=== PATIENT | male | born 1955 | race Caucasian/White ===

== ENCOUNTER → 2020-03-10 14:24 | Outpatient (BNVA) | payer MEDICARE, SELFPAY | PROVIDERS: PCP Student in an Organized Health Care Education/Training Program; Visit Provider Urology | DX: R97.20 Elevated prostate specific antigen [PSA] (principal); C67.8 Malignant neoplasm of overlapping sites of bladder; C61 Malignant neoplasm of prostate; N52.35 Erectile dysfunction following radiation therapy | CPT/HCPCS: 81003; 84153 ==

== ENCOUNTER → 2021-03-09 13:10 | Outpatient (BNVA) | payer MEDICARE, SELFPAY | PROVIDERS: PCP Student in an Organized Health Care Education/Training Program; Visit Provider Urology | DX: C67.8 Malignant neoplasm of overlapping sites of bladder (principal); C61 Malignant neoplasm of prostate | CPT/HCPCS: 81003; 84153 ==

== ENCOUNTER → 2022-03-09 13:03 | Outpatient (BNVA) | payer MEDICARE, SELFPAY | PROVIDERS: Visit Provider Urology | DX: C67.8 Malignant neoplasm of overlapping sites of bladder (principal); C61 Malignant neoplasm of prostate | CPT/HCPCS: 52000; 81003 ==

== ENCOUNTER → 2022-08-16 10:02 | Outpatient (BNVA) | payer MEDICARE, SELFPAY | PROVIDERS: PCP Registered Nurse; Visit Provider Psychiatry & Neurology Neurology | DX: G40.409 Other generalized epilepsy and epileptic syndromes, not intractable, without status epilepticus (principal); E03.9 Hypothyroidism, unspecified; Z85.820 Personal history of malignant melanoma of skin; Z85.46 Personal history of malignant neoplasm of prostate; Z85.51 Personal history of malignant neoplasm of bladder; Z98.890 Other specified postprocedural states; Z87.891 Personal history of nicotine dependence | CPT/HCPCS: 99203 ==

== ENCOUNTER 2022-08-30 15:03 | Outpatient (CLI) | payer MEDICARE, SELFPAY ==
--- NOTE | 2022-08-30 15:15 | USCV_ITS ---
Nikita Magana Age: 66 Gender: M : 1955 Exam Date: 08/30/2022 15:42 Ordering Phys: Jori Kong MD Technologist: CT Exam Location: [facility] [place]_ Indication: Risk Factors: Previous Vascular Surgery: Right Brachial BP: / Left Brachial BP: / Right Left Velocity (cm/s) Spectral Plaque Velocity (cm/s) Spectral Plaque Syst/Diast Broadening Syst/Diast Broadening 76.10/ 18.80 Prox CCA 132.20/ 33.00 87.20/ 20.60 Mid CCA 82.50 / 18.80 69.20/ 17.80 Distal CCA 70.30 / 18.80 53.50/ 15.70 Prox ICA 52.20 / 17.20 82.00/ 30.70 Mid ICA 63.40 / 18.70 84.10/ 25.10 Distal ICA 68.90 / 19.80 90.60 ECA 88.20 0.96 ICA/CCA 0.52 Antegrade Vertebral Antegrade 29.60/ 12.00 cm/s 56.20/ 23.20 cm/s Tri Subclavian Tri 79.60 161.7 0 CONCLUSIONS Right ICA stenosis <50%. Mild atheromatous plaque right carotid bulb/ICA. Left ICA stenosis <50%. Mild atheromatous plaque left carotid bulb/ICA. Normal antegrade Doppler flow noted in the left vertebral artery. Normal antegrade Doppler flow noted in the right vertebral artery. Vik Gandhi MD (Electronically Signed) Final Date: 30 August 2022 16:27 S
== END 2022-08-30 15:04 | disposition home or self-care (01) ==
PROVIDERS: PCP Registered Nurse; Visit Provider Psychiatry & Neurology Neurology
DX: I65.23 Occlusion and stenosis of bilateral carotid arteries (principal)
CPT/HCPCS: 93880

== ENCOUNTER → 2022-09-18 13:02 | Outpatient (BNVA) | payer MEDICARE, SELFPAY | PROVIDERS: PCP Registered Nurse; Visit Provider Psychiatry & Neurology Neurology | DX: G40.909 Epilepsy, unspecified, not intractable, without status epilepticus (principal) | CPT/HCPCS: 95813 ==

== ENCOUNTER 2022-09-29 14:44 | Outpatient (CLI) | payer MEDICARE, SELFPAY ==
--- NOTE | 2022-09-29 15:00 | CT_ITS ---
WS: [id number] CT HEAD TECHNIQUE: Noncontrast and contrast-enhanced CT of the head. 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 COMPARISON: None. DLP: 2277.[address] scans at [facility] use at least one of these dose optimization techniques: automated e xposure control; mA and/or kV adjustment per patient size (includes targeted exams where dose is matc hed to clinical indication); or iterative reconstruction. FINDINGS: No evidence of intracranial hemorrhage or mass effect. Ventricular system and basal cisterns are bedolla nt. Mild intracranial vascular calcification. Mild small vessel changes. Mild parenchymal volume loss . Mild mucosal thickening in the paranasal sinuses. Mastoid air cells well aerated. Normal posterior nasopharynx. No abnormal intracranial enhancement. No enhancing intracranial lesions. CT/CT head wo/w con [id number] IMPRESSION: 1. No evidence of intracranial hemorrhage or mass effect. 2. Mild small vessel changes. Mild parenchymal volume loss. 3. No abnormal intracranial enhancement. 4. No other suspicious findings.
[2022-09-29] MEDS: iohexol 350 mg/mL 500 mL Btl (per mL) IV (15:25)
[2022-09-29 15:40] LABS: Blood Urea Nitrogen 11 mg/dL (8-23); Glomerular Filtration Rate 66.6 mL/min (90-130)
== END 2022-09-29 14:45 | disposition home or self-care (01) ==
PROVIDERS: PCP Registered Nurse; Visit Provider Psychiatry & Neurology Neurology
DX: G40.409 Other generalized epilepsy and epileptic syndromes, not intractable, without status epilepticus (principal)
CPT/HCPCS: 70470; 82565; 84520; Q9967

== ENCOUNTER → 2022-10-24 12:52 | Outpatient (BNVA) | payer MEDICARE, SELFPAY | PROVIDERS: PCP Registered Nurse; Visit Provider Psychiatry & Neurology Neurology | DX: R56.9 Unspecified convulsions; E03.9 Hypothyroidism, unspecified; Z85.820 Personal history of malignant melanoma of skin; Z85.51 Personal history of malignant neoplasm of bladder; Z85.46 Personal history of malignant neoplasm of prostate; Z98.890 Other specified postprocedural states | CPT/HCPCS: 99212 ==